=== PATIENT | female | born 1970 | race Caucasian/White ===

== ENCOUNTER → 2017-12-04 | Outpatient (CLI) | payer MEDICAID | LOC: FIMAGING 11:52 | PROVIDERS: ATTEND Nurse Practitioner Family | DX: Z12.31 Encounter for screening mammogram for malignant neoplasm of breast (principal) ==

== ENCOUNTER 2018-08-30 18:40 | Emergency (ER) | payer OTHER, MEDICAID ==
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
[2018-08-30 19:29] VITALS: BP 146/95
== END 2018-08-30 19:29 | disposition home or self-care (01) ==
LOC: EDUNIT#
DX: Z04.1 Encounter for examination and observation following transport accident (principal)